=== PATIENT | female | born 1950 | race Caucasian/White ===

== ENCOUNTER 2024-07-31 10:21 | Inpatient (IN) ==
--- NOTE | 2024-07-01 12:30 | PAT Medication Instructions ---
Medication Instructions Date of Service July 01, 2024 Home Medications Medication Instructions Recorded pravastatin 10 mg tablet 10 mg PO QAM #90 tabs 09/24/23 losartan 25 mg tablet 25 mg PO QAM pravastatin 10 mg tablet 10 mg PO QAM aspirin 81 mg tablet,delayed release 81 mg PO DAILY amlodipine 10 mg tablet 10 mg PO QAM ASK your prescriber and surgeon aspirin 81 mg tablet,delayed release 81 mg PO DAILY DO NOT take the morning of surgery losartan 25 mg tablet 25 mg PO QAM Take morning of surgery With a small sip of water, OTHERWISE NOTHING TO EAT OR DRINK AFTER MIDNIGHT: pravastatin 10 mg tablet 10 mg PO QAM amlodipine 10 mg tablet 10 mg PO QAM Other Notes If you have any questions please call us at [phone] or [phone] or [phone] or [phone]
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
[2024-07-31] MEDS ORDERED: fentaNYL citrate PF 100 MCG/2 ML VIAL ONE ×2 (10:53→13:31)
[2024-07-31] MEDS ORDERED: MIDAZOLAM HCL 1 MG/ML 2ML VIAL ONE (10:54)
[2024-07-31] MEDS ORDERED: PROPOFOL IV EMULSION 10 MG/ML 20 ML VIAL IV ONE ×2 (10:55→14:40)
[2024-07-31] MEDS ORDERED: ONDANSETRON INJ 2 MG/ML 2 ML VIAL ONE ×2 (10:55→13:55)
[2024-07-31] MEDS ORDERED: LIDOCAINE 2% 2 ML VIAL/AMP(20MG/ML) INFIL ONE ×2 (10:55)
[2024-07-31] MEDS ORDERED: DEXAMETHASONE SOD INJ 4 MG/ML VIAL ONE ×2 (10:55→10:56)
[2024-07-31] MEDS ORDERED: ROCURONIUM BROMIDE 10 MG/ML 5 ML VIAL IV ONE ×2 (10:55→12:47)
[2024-07-31] MEDS ORDERED: diphenhydrAMINE 50 MG/ML VIAL ONE (10:56)
[2024-07-31] MEDS: LR 60ML/HR IV SCH (11:00)
[2024-07-31] MEDS: ACETAMINOPHEN 500 MG TAB PO SCH (11:01)
[2024-07-31] MEDS: CeleBREX 200 MG CAP PO SCH (11:01)
[2024-07-31] MEDS: GABAPENTIN 300 MG CAP PO SCH (11:01)
[2024-07-31 11:12] LABS: BUN Creatinine Ratio 18.4 (10-20); Calcium 10.1 mg/dl (8.6-10.3); Creatinine Clr Calc Pharmacy 55.4 ml/min; Potassium 4.4 mmol/L (3.5-5.1)
--- NOTE | 2024-07-31 11:47 | History & Physical Bridge Note ---
Date of Service July 31, 2024 History & Physical Bridge Note I have examined the patient, reviewed the History & Physical and in the interval since the performance of the History & Physical I have noted the following changes of clinical significance: no changes noted
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
[2024-07-31] MEDS: ceFAZolin 2000MG 2,000 MG/15 ML SYR IV ONE (12:16)
[2024-07-31] MEDS ORDERED: ONDANSETRON INJ 2 MG/ML 2 ML VIAL IV PRN (12:24)
[2024-07-31] MEDS ORDERED: LABETALOL HCL IV 5 MG/ML 20ML IV PRN (12:24)
[2024-07-31] MEDS ORDERED: ATROPINE SULFATE 0.1 MG/ML 10ML SYR IV PRN (12:24)
[2024-07-31] MEDS ORDERED: PROMETHAZINE HCL 6.25 MG in SODIUM CHLORIDE 0.9% 50 ML IV PRN (12:24)
[2024-07-31] MEDS ORDERED: SUGAMMADEX SODIUM 200 MG/2 ML VIAL IV ONE (12:51)
[2024-07-31] MEDS ORDERED: ePHEDrine sulfate 50 MG/5 ML SYR ONE (12:59)
[2024-07-31] MEDS: BUPIVACAINE/EPINEPHRINE 0.25% 1:200,000 30 ML VIAL ONE (13:04)
[2024-07-31] MEDS: ceFAZolin 330 MG/ML 1 GM VIAL ONE (14:42)
[2024-07-31] MEDS: FLOSEAL HEMOSTATIC MATRIX 10ML TOP ONE (14:42)
--- NOTE | 2024-07-31 14:55 | Operative Report ---
Post Operative Report Pre & Post Diagnosis Operation Date: 07/31/24 11:55 Pre-Op Diagnosis: #1 multilevel lumbosacral spondylosis with radiculopathy: #2 lumbar spinal stenosis Post-Op Diagnosis: Same I identified the patient and participated in the time-out.: Yes Procedure Operation Date: 07/31/24 11:55 Actual Procedures #1 lumbar decompression bilaterally facetectomies and foraminotomies L3-L4, L4-5 and L5-S1. #2 posterior spinal fusion L4-L5. #3 placement posterior instrumentation L4-L5 using Encarnacion. #4 interbody fusion L4-L5 L5-S1. #5 place ment of Spira 13 x 26 mm x 2 at L4-L5 and 13 x 26 mm x 2 at L5-S1. #6 placement locally harvested once as autograft and posterior gutters. #7 placement infuse collagen sponge combined with Koros in the posterior lateral gutters. Placement of os design and interbody spaces. Surgeon Isaias Majano, DO [employer] Presenter Braden Cotton Estimated Blood Loss 600 Findings See Below The patient is 5 foot 6 weighing over 90 kg with a BMI in excess of 32. The patient's body habitus did contribute to significant technical difficulty with positioning exposure the procedure itself adding these 50% increased operative time. Specimens None Indications This is a 74-year-old female the presents above-mentioned diagnosis after failing course of nonoperative care is here for surgical invention. Description of Procedure Patient was met with identified informed consent obtained. Patient was then taken to the operative suite underwent send patient placed in the prone position on the Pete table on top of the Zack frame. All bony prominences well- padded eyes inspected to ensure no external pressure placed upon them. This point the lumbar spine was prepped and draped in the normal sterile fashion. Sharp dissection with the assistance of Bovie cautery performed down to exposing the lamina and transverse processes of L4-5 and the sacral ala bilaterally. From a caudal cephalad fashion complete laminectomy of L5 was performed including bilateral medial facetectomies and foraminotomies addressing severe neural compression. This is followed by complete laminectomy of L4 with bilateral medial facetectomies and foraminotomies addressing severe stenosis and lastly partial laminectomy of L3 with bilateral medial facetectomies to address all subarticular stenosis. Pedicle screws were then placed at L4-L5 and S1 levels bilaterally with assistance of fluoroscopy and appropriate sized escobar placed. Believe a transforaminal approach on the right did discectomy of L5-S1 was performed endplates created to subcortically bone and a 13 x 26 mm spiral cage tapped into position. Then proceeded to the left transforaminal region at L5-S1. Again discectomy performed. Endplates guided to subcortical main bone and a second 13 x 26 mm spiral cage tapped into position. Then proceeded at L4- L5 and again by way of transfer approach to the left discectomy was performed. Endplates guided to subcortically bone and 13 x 26 mm spiral cage was tapped into position. Then proceeded to the right transforaminal region at L4-L5. Again discectomy performed. Endplates guided to subcortical bleeding bone and a second 13 x 26 mm spiral cage tapped into position. Please note all cages were filled with os design bone graft. The rods were then compressed locked into final position bilaterally. The transverse processes of L4-L5 and the sacral ala burred to subcortical bleeding bone. Infuse collagen sponge combined with Koros and local autograft placed in posterior gutters. Incidental durotomy was noted and repaired directly with interrupted 4-0 Nurolon. A DuraGen patch was then placed. There is no evidence of any persistent CSF leak. A 15 round CARY drain is inserted. The incision was closed with 1 Vicryl the fascia 2-0 Vicryl subcutaneously and 4 Monocryl for final skin closure. Steri-Strips sterile dressing placed. Patient waken taken PACU stable condition. Please note Braden Cotton was present of the entire procedure and on the patient positioning complex portion of the surgery and final skin closure. Im ordering 10 grams of Collagen Powder ([facility] A6010 Primary Dressing) and 10 bordered super absorbent ([facility] A6196 Secondary Dressing) to treat an incision wound that was c aused by a spine procedure. The incision is approximately 2 cm(W) x 2 cm(L) down to the spinal column and epidural space 2 cm (D) in size and is a full thickness wound showing no signs of infection. Collagen comes in 1 gram packets so 10 packets were ordered. Given the size of the wound, with moderate exudate I chose to order a 10 day supply. The patient will be provided instructions for proper application of the collagen wound kit. The patient will be asked to apply the collagen powder daily and then cover it with sterile dressings dispensed. Collagen was selected as I expect the collagen to attract monocytes and fibroblasts, act as a sacrificial substrate for MMPs, and ultimately proved a matrix for tissue and vessel growth. The collagen will act as a primary dressing in this scenario. It is medically necessary for proper healing of these wounds to improve bioavailability and contact with each wound surface, this is also to help prevent infection of wounds and promote healing ultimately leading to a better healing outcome and limit the risk of infection. I attest to the content of the Intraoperative Record and any orders documented therein. Any exceptions are noted below.
--- NOTE | 2024-07-31 14:59 | Fluoroscopy Report ---
FL lumbar spine 2-3V CLINICAL HISTORY: L4-S1 DECOMP/FUSION COMPARISON STUDY: None FLUOROSCOPY TIME: 25 seconds FLUOROSCOPY IMAGES: 3 EXPOSURE DOSE: 21 mGy FINDINGS: Fluoroscopy was provided for lower lumbar metallic fusion. IMPRESSION: Intraoperative fluoroscopy. ACT 112: Negative or not required by law. Electronically signed by: Guillermo Silva M.D. 07/31/2024 2:57 PM
[2024-07-31] MEDS: HYDROmorphone INJ 1 MG/ML SYRINGE IV PRN ×2 (15:15→19:52)
[2024-07-31] MEDS: HYDROmorphone INJ 2 MG/ML SYR/VIAL IV PRN (15:49)
[2024-07-31] MEDS: HYDROmorphone INJ 2 MG/ML SYR/VIAL ONE (16:02)
--- NOTE | 2024-07-31 16:32 | Anesthesiology Progress Note ---
Date of Service July 31, 2024 Anesthesia Post Procedure Vital Signs Vital Signs: Temp Pulse Pulse Resp BP Pulse Ox O2 Del Method 07/31/24 16:20 62 17 95/61 L 92 Room Air 07/31/24 16:10 36.4 C L 62 17 100/59 L 93 Room Air 07/31/24 16:00 36.4 C L 62 16 121/64 96 Room Air 07/31/24 15:50 64 21 121/64 96 Nasal Cannula 07/31/24 15:40 64 19 134/68 93 Nasal Cannula 07/31/24 15:30 65 15 134/67 95 Nasal Cannula 07/31/24 15:20 65 19 141/87 H 95 Room Air 07/31/24 15:10 69 15 130/70 99 Oxymask 07/31/24 15:08 36.1 C L 66 16 124/62 99 Oxymask 07/31/24 11:22 36.9 C 58 L 16 165/84 H 97 Room Air O2 Flow Rate 07/31/24 16:20 2 07/31/24 16:10 2 07/31/24 16:00 2 07/31/24 15:50 2 07/31/24 15:40 2 07/31/24 15:30 2 07/31/24 15:20 07/31/24 15:10 4 07/31/24 15:08 4 07/31/24 11:22 Transfer of Care Handoff Completed per policy Notes Mental Status: alert / awake / arousable Patient Amnestic to Procedure: Yes Nausea / Vomiting: adequately controlled Pain: adequately controlled Airway Patency, RR, SpO2: stable & adequate BP & HR: stable & adequate Hydration State: stable & adequate Anesthetic Complications: no major complications apparent
[2024-07-31] MEDS ORDERED: FAMOTIDINE 20 MG TAB PO PRN (16:50)
[2024-07-31] MEDS ORDERED: LORazepam 2 MG/1 ML VIAL IV PRN (16:50)
[2024-07-31] MEDS ORDERED: hydrOXYzine HCl 25 MG TAB PO PRN (16:50)
[2024-07-31] MEDS ORDERED: NALOXONE HCL 0.4 MG/1 ML VIAL/CARP IV PRN (16:50)
[2024-07-31] MEDS ORDERED: diphenhydrAMINE Capsule 25 MG CAP PO PRN (16:50)
[2024-07-31] MEDS ORDERED: traMADol HCL 50 MG TABLET PO PRN (16:50)
[2024-07-31] MEDS ORDERED: bisacodyL 10 MG SUPP PR PRN (16:50)
[2024-07-31] MEDS ORDERED: ALUMINUM/MAGNESIUM SUSP 30 ML UDC PO PRN (16:50)
[2024-07-31] MEDS ORDERED: PROMETHAZINE 12.5 MG/50.5 ML BAG IV PRN (16:50)
[2024-07-31] MEDS ORDERED: DO NOT ADMINISTER FLU VACCINE PRN (16:50)
[2024-07-31] MEDS ORDERED: SOD PHOSPHATE/SOD BIPHOSPHATE ENEMA 132 ML BTL PR PRN (16:50)
[2024-07-31] MEDS ORDERED: METOCLOPRAMIDE HCL INJ 5 MG/ML 2 ML VIAL IV PRN (16:50)
[2024-07-31] MEDS ORDERED: MAGNESIUM HYDROXIDE SUSP 30 ML UDC PO PRN (16:50)
[2024-07-31] MEDS ORDERED: LORazepam 0.5 MG TAB PO PRN (16:50)
[2024-07-31] MEDS ORDERED: DO NOT ADMINISTER PNEUMOCOCCAL VACCINE PRN (16:50)
[2024-07-31] MEDS ORDERED: HYDROmorphone INJ 0.5 MG/0.5 ML SYR IV PRN (16:50)
[2024-07-31] MEDS ORDERED: ACETAMINOPHEN 500 MG TAB PO PRN (16:50)
[2024-07-31] MEDS: ALLERGY Noted to ORDERED Medication SCH (16:55)
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
[2024-07-31] MEDS: HYDROCODONE/ACETAMOPHEN 5/325MG TAB PO PRN (18:14)
[2024-07-31] MEDS: ONDANSETRON INJ 2 MG/ML 2 ML VIAL IV PRN (19:51)
[2024-07-31] MEDS: CLINDAMYCIN/D5W 600 MG/50 ML BAG IV SCH (20:55)
[2024-07-31] MEDS: DOCUSATE SODIUM/SENNA 50/8.6MG TAB PO SCH (20:55)
[2024-07-31] MEDS: ACETAMINOPHEN 1,000 MG/100 ML VIAL IV PRN (23:11)
[2024-08-01] MEDS: POLYETHYLENE (MIRALAX) 17 GM PACK PO SCH (05:55)
[2024-08-01 06:22] LABS: Basophils # (auto) 0.01 K/uL (0.00-0.20); Basophils % (auto) 0.1 %; Hematocrit (blood only) 31.9 % (37.0-47.0); Hemoglobin 10.1 g/dl (12.0-16.0); Immature Granulocytes # (auto) 0.07 K/uL (0.01-0.20); Immature Granulocytes % (auto) 0.5 %; Lymphocytes # (auto) 1.03 K/uL (1.20-3.40); Lymphocytes % (auto) 7.2 %; Mean Corpuscular Hemoglobin 28.8 pg (25.0-34.0); Mean Corpuscular Hgb Conc 31.7 g/dL (32.0-36.0); Mean Corpuscular Volume 90.9 fL (80.0-100.0); Mean Platelet Volume 10.2 fL (9.4-12.4); Monocytes # (auto) 0.75 K/uL (0.11-0.59); Monocytes % (auto) 5.3 %; Neutrophils # (auto) 12.36 K/uL (1.40-6.50); Neutrophils % (auto) 86.9 %; Platelet Count 301 K/uL (130-400); RDW Coefficient of Variation 12.7 % (11.5-14.5); RDW Standard Deviation 41.6 fL (36.4-46.3); Red Blood Count 3.51 M/uL (4.20-5.40); White Blood Count 14.22 K/ul (4.8-10.8)
[2024-08-01 06:38] LABS: BUN Creatinine Ratio 20.6 (10-20); Calcium 8.6 mg/dl (8.6-10.3); Creatinine Clr Calc Pharmacy 50.7 ml/min; Potassium 4.9 mmol/L (3.5-5.1)
--- NOTE | 2024-08-01 07:02 | Hospitalist Progress Note ---
Date of Service August 01, 2024 Assessment & Plan (1) Multilevel lumbosacral spondylosis with radiculopathy: (2) S/P spinal surgery: (3) Headache: (4) Acute postoperative anemia due to expected blood loss: Plan Patient is a 74 year old female with past medical history of spondylosis with radiculopathy, HTN, HLD, chronic venous insufficiency, PAD, PUD, hiatal hernia, history of provoked DVT in 1990 and other problems listed below who is being seen in consultation for routine postoperative medical management after undergoing L4-S1 decompression and fusion performed by Dr. Majano on 07/31/24. #Multilevel lumbosacral spondylosis with radiculopathy #S/p spinal surgery #Postop headache, N/V --> possible spinal headache 2/2 CSF leak ISO incidental durotomy during surgery POD #1 s/p L4-S1 decompression and fusion Continue PRN pain control, wound care per ortho Head of bed flat for 48hrs ISO incidental durotomy, suspect spinal headache IV reestablished this AM (previously lost access 2/2 infiltration) IV Decadron ordered per ortho --> suspect cause for leukocytosis ? benefit from caffeine infusion for spinal ELIZABETH --> reassess pt this afternoon Maintenance IVF until N/V resolves #Acute postoperative blood loss anemia ISO expected intraop blood loss Likely dilutional component contributing as well No indication to transfuse at this time Continue to monitor H/H #HTN BP still soft Continue hold home BP meds Reportedly on diuretic 2 weeks ago for BLE swelling, discontinued by pt (? swelling 2/2 Norvasc) #Carotid artery stenosis #HLD Continue statin, ASA as per ortho DVT Prophylaxis: As per ortho Disposition: D/c planning as per ortho We will follow the patient with you during their hospital stay. You can reach a member of the [facility] Hospitalist Team 03/09 via [employer]. Patient seen in collaboration with Dr. Apodaca. Please see addendum. I spent a total of 50 minutes coordinating, documenting, and providing care for this patient excluding time spent in the performance of separately billed services or time spent by another provider/QHP. This included personally reviewing all current laboratories and imaging studies, medical reconciliation, outpatient chart review and discussion with specialists. This chart was completed in part utilizing Speech Voice Recognition Software. Grammatical errors, random word insertions, pronoun errors, and incomplete sentences are an occasional consequence of this system due to software limitations, ambient noise, and hardware issues. Any formal questions or concerns about the content, text, or information contained within the body of this dictation should be directly addressed to the provider for clarification. Admission and Anticipated Discharge Date Admission Date: July 31, 2024 Supervising Physician Co-Signing Physician Notes Patient seen at bedside. Patient uncomfortable today, is upset and has a severe headache. Lumbar decompression in setting of incidential durotomy causing likely CSF leak and spinal headache. Will give fluids, caffeine, bed rest, lying flat for now. Abdominal binder if symptoms worsen. If refractory will consider blood patch. Other headache differential includes migraine, bleed, less likely infectious. CT head w/o contrast ordered given severe headache. I have seen and discussed the case with the collaborating advanced practitioner. I agree with the above H&P. I have reviewed and confirmed the patients medical history, the findings on physical examination, and the patients diagnosis and treatment plan with Skyler PEDROZA and agree with the information documented. I spent a total of 20 minutes coordinating, documenting, and providing care for this patient excluding time spent in the performance of separately billed services. All of the aforementioned completed outside of collaborating with the assigned advanced practitioner for a full treatment plan. I have reviewed the advanced practitioner's documentation, and I agree with, and take responsibility for the plan of care Subjective Patient seen and examined in W354-2. Endorses an aching headache which started overnight. Also with some N/V. Mention she cannot lay flat because it makes her extremely nauseous. Closing her eyes helps somewhat. Waiting to reestablish IV access. Review of Systems Review of Systems: At least ten systems reviewed and negative, except as noted in the subjective section. Physical Exam Physical Exam: General: Laying down in bed w/ head at an incline. A&Ox3. Visibly uncomfortable, tearful. Restless, anxious. HEENT: Normocephalic, atraumatic. External ear and nose normal, oropharynx normal. Respiratory: Normal respiratory effort, lungs clear to auscultation bilaterally. Cardiovascular: Regular rate, rhythm, normal peripheral pulses, no BLE edema. Abdomen/GI: Active bowel sounds, soft, nontender to palpation in all quadrants. : Torres catheter patent and draining clear, yellow urine. Extremities/MSK: CARY drain x 1 w/ bloody output. Surgical site not visualized 2/2 pt discomfort. Neurologic: No overt focal deficits. Actively moving all extremities. Results & Data Results & Data Vital Signs (Past 12 Hours) Vital Signs Temp Pulse Resp BP Pulse Ox O2 Del Method 08/01/24 03:00 36.5 C 64 18 133/78 95 Room Air 07/31/24 23:00 36.5 C 52 L 18 106/66 94 Room Air 07/31/24 20:40 36.5 C 63 18 115/75 91 Room Air 07/31/24 19:40 36.5 C 54 L 18 106/68 93 Room Air Laboratory Results Short CBC 08/01/24 Range/Units 05:48 WBC 14.22 H (4.8-10.8) K/ul Hgb 10.1 L (12.0-16.0) g/dl Hct 31.9 L (37.0-47.0) % Plt Count 301 (130-400) K/uL BMP 07/31/24 08/01/24 10:31 05:48 Sodium 139 136 Potassium 4.4 4.9 Chloride 107 106 Carbon Dioxide 27 26 BUN 18 22 Creatinine 0.98 1.07 Glucose 99 176 H Calcium 10.1 8.6 (3) Headache Headache chronicity pattern: acute headache Headache type: unspecified Intractability: intractable Qualified Code(s): R51.9 - Headache, unspecified
[2024-08-01] MEDS: ONDANSETRON 4 MG OD TAB PO PRN (08:41)
[2024-08-01] MEDS ORDERED: amLODIPine BESYLATE 5 MG TAB PO SCH (09:00)
[2024-08-01] MEDS ORDERED: LOSARTAN POTASSIUM 25 MG TAB PO SCH (09:00)
[2024-08-01] MEDS ORDERED: dexAMETHasone 6 MG in SYRINGE 0 ML IV SCH (09:00)
[2024-08-01] MEDS ORDERED: DEXAMETHASONE SOD INJ 4 MG/ML VIAL IV SCH (10:15)
[2024-08-01] MEDS: dexAMETHasone 1 MG TAB PO SCH (10:22)
[2024-08-01] MEDS ORDERED: ACETAMINOPHEN 1,000 MG/100 ML VIAL IV PRN (10:24)
[2024-08-01] MEDS: PRAVASTATIN SOD 10 MG TAB PO SCH (10:45)
[2024-08-01] MEDS: ASPIRIN 81 MG ECTAB PO SCH (10:45)
[2024-08-01] MEDS: METOCLOPRAMIDE HCL INJ 5 MG/ML 2 ML VIAL IV PRN (10:47)
[2024-08-01] MEDS: SODIUM CHLORIDE 0.9% 1,000 ML IV SCH (10:47)
[2024-08-01] MEDS: ACETAMINOPHEN 1,000 MG/100 ML VIAL IV STA (10:50)
--- NOTE | 2024-08-01 10:50 | Orthopedic Progress Note ---
Date of Service August 01, 2024 Assessment & Plan (1) Multilevel lumbosacral spondylosis with radiculopathy: Plan: At this time I did remove her drain. Will maintain head of bed flat for most of the day for the next 48 hours. She may sit up to eat. She may lay on her side. Will plan for bed to chair transfers most likely Saturday. Admission and Anticipated Discharge Date Admission Date: July 31, 2024 Subjective Patient struggling with nausea and headache. She has no leg pain. Physical Exam Physical Exam: On exam she is good strength testing lower extremities. Results & Data Vital Signs (Past 12 Hours) Vital Signs Temp Pulse Pulse Resp BP Pulse Ox O2 Del Method 08/01/24 08:22 36.6 C 90 18 125/67 95 Room Air 08/01/24 03:00 36.5 C 64 18 133/78 95 Room Air 07/31/24 23:00 36.5 C 52 L 18 106/66 94 Room Air
[2024-08-01] MEDS: dexAMETHasone 6 MG in SYRINGE 0 ML IV SCH (11:47)
[2024-08-01] MEDS: CYCLOBENZAPRINE HCL 10 MG TAB PO PRN (11:53)
--- NOTE | 2024-08-01 13:54 | Ultrasound Report ---
LEFT LOWER EXTREMITY VENOUS DOPPLER HISTORY: L calf pain, h/o DVT COMPARISON STUDY: None FINDINGS: No evidence of DVT seen in the left lower extremity. IMPRESSION: No DVT seen. . ACT 112: Negative or not required by law. Electronically signed by: Guillermo Silva M.D. 08/01/2024 1:52 PM
[2024-08-02 07:46] LABS: Hematocrit (blood only) 31.9 % (37.0-47.0); Hemoglobin 10.1 g/dl (12.0-16.0); Mean Corpuscular Hemoglobin 28.9 pg (25.0-34.0); Mean Corpuscular Hgb Conc 31.7 g/dL (32.0-36.0); Mean Corpuscular Volume 91.1 fL (80.0-100.0); Mean Platelet Volume 10.3 fL (9.4-12.4); Platelet Count 291 K/uL (130-400); RDW Coefficient of Variation 13.1 % (11.5-14.5); RDW Standard Deviation 43.1 fL (36.4-46.3); White Blood Count 16.66 K/ul (4.8-10.8)
--- NOTE | 2024-08-02 07:51 | Hospitalist Progress Note ---
Date of Service August 02, 2024 Assessment & Plan (1) Multilevel lumbosacral spondylosis with radiculopathy: (2) S/P spinal surgery: (3) Headache: (4) Acute postoperative anemia due to expected blood loss: Plan Patient is a 74 year old female with past medical history of spondylosis with radiculopathy, HTN, HLD, chronic venous insufficiency, PAD, PUD, hiatal hernia, history of provoked DVT in 1990 and other problems listed below who is being seen in consultation for routine postoperative medical management after undergoing L4-S1 decompression and fusion performed by Dr. Majano on 07/31/24. #Multilevel lumbosacral spondylosis with radiculopathy #S/p spinal surgery #Postop headache, N/V --> possible spinal headache 2/2 CSF leak ISO incidental durotomy during surgery POD #2 s/p L4-S1 decompression and fusion Continue PRN pain control, wound care per ortho Head of bed flat for 48hrs ISO incidental durotomy, suspect spinal headache ELIZABETH had resolved overnight but has now returned this AM Pt refusing head CT --> education provided, pt encouraged to reconsider IV Decadron ordered per ortho --> suspect attributing for leukocytosis, likely postop inflammatory response as well S/p IV caffeine infusion yesterday; ? may need to reconsider another infusion as ELIZABETH has returned Hold off on additional IVF for now as pt tolerating diet #Acute postoperative blood loss anemia ISO expected intraop blood loss Likely dilutional component contributing as well No indication to transfuse at this time Continue to monitor H/H, stable for now #L calf pain reported on 08/01 LLE venous doppler US negative (obtained given remote h/o DVT) #HTN BP slightly elevated this AM --> restart Norvasc Continue to hold losartan for now Reportedly on diuretic 2 weeks ago for BLE swelling, discontinued by pt (? swelling 2/2 Norvasc) #Carotid artery stenosis #HLD Continue statin, ASA as per ortho DVT Prophylaxis: As per ortho Disposition: D/c planning as per ortho We will follow the patient with you during their hospital stay. You can reach a member of the [facility] Hospitalist Team 03/09 via [employer]. Patient seen in collaboration with Dr. Apodaca. Please see addendum. I spent a total of 38 minutes coordinating, documenting, and providing care for this patient excluding time spent in the performance of separately billed services or time spent by another provider/QHP. This included personally reviewing all current laboratories and imaging studies, medical reconciliation, outpatient chart review and discussion with specialists. This chart was completed in part utilizing Speech Voice Recognition Software. Grammatical errors, random word insertions, pronoun errors, and incomplete sentences are an occasional consequence of this system due to software limitations, ambient noise, and hardware issues. Any formal questions or concerns about the content, text, or information contained within the body of this dictation should be directly addressed to the provider for clarification. Admission and Anticipated Discharge Date Admission Date: July 31, 2024 Supervising Physician Co-Signing Physician Notes Personally reviewed labs, leukocytosis of 16.66 in setting of decadron and post op setting, Hgb level stable post op Lumbar decompression in setting of incidental durotomy causing likely CSF leak and spinal headache. Headache improving with fluids and caffeine. Dispo per ortho. I have seen and discussed the case with the collaborating advanced practitioner. I agree with the above H&P. I have reviewed and confirmed the patients medical history, the findings on physical examination, and the patients diagnosis and treatment plan with Skyler PEDROZA and agree with the information documented. I spent a total of 10 minutes coordinating, documenting, and providing care for this patient excluding time spent in the performance of separately billed services. All of the aforementioned completed outside of collaborating with the assigned advanced practitioner for a full treatment plan. I have reviewed the advanced practitioner's documentation, and I agree with, and take responsibility for the plan of care Subjective Patient seen and examined in room W354-2. Headache initially resolved overnight but has since returned this morning. Rates it as a 5/10 and aching in nature. No visual changes. Head of bed remains flattened. No further N/V. Strongly advised patient that we should check a head CT for further evaluation to ensure there is no underlying hemorrhage but she repeatedly stated she'd like to hold off on getting any imaging for now unless the headache would worsen. Endorses feeling very anxious. Now with bothersome pain in her left leg which was present prior to surgery. LLE venous doppler US negative yesterday. Encouraged her to utilize PRN pain medications. Review of Systems Review of Systems: At least ten systems reviewed and negative, except as noted in the subjective section. Physical Exam Physical Exam: General: Laying down in bed w/ head of bed flat. A&Ox3. Tearful. Seems unc omfortable. Restless, very anxious. HEENT: Normocephalic, atraumatic. External ear and nose normal, oropharynx normal. Respiratory: Normal respiratory effort, lungs clear to auscultation bilaterally. Cardiovascular: Regular rate, rhythm, normal peripheral pulses, no BLE edema. Abdomen/GI: Active bowel sounds, soft, nontender to palpation in all quadrants. : Torres catheter patent and draining clear, yellow urine. Extremities/MSK: Surgical site not visualized 2/2 pt discomfort. Neurologic: No overt focal deficits. Actively moving all extremities. Results & Data Results & Data Vital Signs (Past 12 Hours) Vital Signs Temp Pulse Resp BP Pulse Ox O2 Del Method 08/02/24 07:42 36.6 C 58 L 18 155/93 H 95 Room Air 08/02/24 03:00 36.7 C 68 16 145/72 H 91 Room Air 08/01/24 23:00 36.5 C 72 18 146/80 H 94 Room Air Laboratory Results Short CBC 08/02/24 Range/Units 07:26 WBC 16.66 H (4.8-10.8) K/ul Hgb 10.1 L (12.0-16.0) g/dl Hct 31.9 L (37.0-47.0) % Plt Count 291 (130-400) K/uL BMP 08/02/24 07:26 Sodium 141 Potassium 4.2 Chloride 110 H Carbon Dioxide 27 BUN 11 Creatinine 0.79 Glucose 107 H Calcium 8.8 (3) Headache Headache chronicity pattern: acute headache Headache type: unspecified Intractability: intractable Qualified Code(s): R51.9 - Headache, unspecified
[2024-08-02 08:13] LABS: BUN Creatinine Ratio 13.9 (10-20); Calcium 8.8 mg/dl (8.6-10.3); Creatinine Clr Calc Pharmacy 68.7 ml/min; Potassium 4.2 mmol/L (3.5-5.1)
--- NOTE | 2024-08-02 08:31 | Orthopedic Progress Note ---
Date of Service August 02, 2024 Assessment & Plan (1) Multilevel lumbosacral spondylosis with radiculopathy: Plan: Sindi is postoperative day 2 status post L4-S1 decompression and fusion with postop CSF leak. Will maintain head of bed no greater than 10 degrees today. If still asymptomatic tomorrow, will attempt a bed to chair. Maintain Torres catheter. I will restart some steroids due to her left leg pain. Admission and Anticipated Discharge Date Admission Date: July 31, 2024 Subjective Don is postoperative day 2 status post L4-S1 decompression and fusion with CSF leak. Headache has resolved. No nausea. Still has left leg pain. She is currently head of bed flat until tomorrow. Torres catheter was placed yesterday. Review of Systems Review of Systems: All systems reviewed & are unremarkable except as noted in HPI & below Physical Exam Physical Exam: She is laying in bed with head of bed elevated to about 25 degrees. She is tolerating this. Strength is intact bilateral lower extremities Results & Data Vital Signs (Past 12 Hours) Vital Signs Temp Pulse Resp BP Pulse Ox O2 Del Method 08/02/24 07:42 36.6 C 58 L 18 155/93 H 95 Room Air 08/02/24 03:00 36.7 C 68 16 145/72 H 91 Room Air 08/01/24 23:00 36.5 C 72 18 146/80 H 94 Room Air
[2024-08-02] MEDS: dexAMETHasone 8 MG in SYRINGE 0 ML IV SCH (09:24)
[2024-08-02] MEDS: amLODIPine BESYLATE 5 MG TAB PO SCH (13:25)
--- NOTE | 2024-08-03 07:54 | Orthopedic Progress Note ---
Date of Service August 03, 2024 Assessment & Plan (1) Multilevel lumbosacral spondylosis with radiculopathy: Plan: Today we will begin bed to chair transfer. She should hopefully get to a chair least 2-3 times today. Walk in the room only. Pending her progress we will increase activity with physical therapy. Admission and Anticipated Discharge Date Admission Date: July 31, 2024 Subjective Patient's headache is improved she has no leg pain. Back is stiff. Physical Exam Physical Exam: Dressing demonstrates minimal drainage. She has good strength testing. Results & Data Vital Signs (Past 12 Hours) Vital Signs Temp Pulse Resp BP Pulse Ox O2 Del Method 08/03/24 07:25 37.3 C 63 16 139/77 97 Room Air 08/02/24 20:47 37.1 C 72 20 153/71 H 96 Room Air
[2024-08-03 08:00] LABS: Hematocrit (blood only) 31.4 % (37.0-47.0); Hemoglobin 10.2 g/dl (12.0-16.0); Mean Corpuscular Hemoglobin 28.9 pg (25.0-34.0); Mean Corpuscular Hgb Conc 32.5 g/dL (32.0-36.0); Mean Platelet Volume 10.8 fL (9.4-12.4); Platelet Count 328 K/uL (130-400); RDW Coefficient of Variation 12.9 % (11.5-14.5); RDW Standard Deviation 41.8 fL (36.4-46.3); Red Blood Count 3.53 M/uL (4.20-5.40); White Blood Count 19.17 K/ul (4.8-10.8)
[2024-08-03 08:25] LABS: BUN Creatinine Ratio 15.8 (10-20); Creatinine Clr Calc Pharmacy 71.4 ml/min; Potassium 4.1 mmol/L (3.5-5.1)
--- NOTE | 2024-08-03 10:57 | Hospitalist Progress Note ---
Date of Service August 03, 2024 Assessment & Plan (1) Multilevel lumbosacral spondylosis with radiculopathy: (2) S/P spinal surgery: (3) Headache: (4) Acute postoperative anemia due to expected blood loss: Plan Patient is a 74 year old female with past medical history of spondylosis with radiculopathy, HTN, HLD, chronic venous insufficiency, PAD, PUD, hiatal hernia, history of provoked DVT in 1990 and other problems listed below who is being seen in consultation for routine postoperative medical management after undergoing L4-S1 decompression and fusion performed by Dr. Majano on 07/31/24. #Multilevel lumbosacral spondylosis with radiculopathy #S/p spinal surgery #Postop headache, N/V --> possible spinal headache 2/2 CSF leak ISO incidental durotomy during surgery POD #3 s/p L4-S1 decompression and fusion Post-op headache in setting of incidental durotomy has resolved, tolerating being OOB today for first time since surgery Advancement of activity per Dr. Majano Plan to remove alfonso tomorrow once more mobile IV Decadron per ortho - significant improvement in post-op pain. Consider dc/ decreasing frequency tomorrow Continue PRN pain control, wound care per ortho #Acute postoperative blood loss anemia ISO expected intraop blood loss, likely dilutional component also contributing Hgb stable at 10.2 (10.1 yesterday) Continue to monitor H/H #Leukocytosis WBC 19K in setting of IV steroids - no suspicion for underlying infection Monitor closely, anticipate decreasing steroid frequency tomorrow #L calf pain reported on 08/01 -> resolved LLE venous doppler US negative (obtained given remote h/o DVT) #HTN Normotensive today Norvasc resumed, plan to resume losartan tomorrow AM #Carotid artery stenosis #HLD Continue statin, ASA as per ortho DVT Prophylaxis: As per ortho. Will discuss adding SQ DVT ppx as of tomorrow as patient will be POD #4. Disposition: D/c planning as per ortho We will follow the patient with you during their hospital stay. You can reach a [facility] via [employer]. I spent a total of 50 minutes coordinating, documenting, and providing care for this patient excluding time spent in the performance of separately billed services or time spent by another provider/QHP. Patient seen in collaboration with Dr. Apodaca. Admission and Anticipated Discharge Date Admission Date: July 31, 2024 Supervising Physician Co-Signing Physician Notes Personally reviewed labs, leukocytosis of 19 in setting of decadron and post op setting, Hgb level stable post op Lumbar decompression in setting of incidental durotomy causing likely CSF leak and spinal headache. Up in chair today, dispo per ortho. I have seen and discussed the case with the collaborating advanced practitioner. I agree with the above H&P. I have reviewed and confirmed the patients medical history, the findings on physical examination, and the patients diagnosis and treatment plan with Skyler PEDROZA and agree with the information documented. I spent a total of 10 minutes coordinating, documenting, and providing care for this patient excluding time spent in the performance of separately billed services. All of the aforementioned completed outside of collaborating with the assigned advanced practitioner for a full treatment plan. I have reviewed the advanced practitioner's documentation, and I agree with, and take responsibility for the plan of care Subjective Seen and examined in 354-2. Sitting in bedside chair; first time OOB since surgery on 07/31. Feeling well. Headache and L leg pain have resolved. Denies surgical site pain at rest. No F/C, lightheadedness, CP, SOB, N/V, abd pain, dysuria, diarrhea. Passing flatus, no post-op bowel movement. Alfonso in place. Review of Systems Review of Systems: At least ten systems reviewed and negative except as noted in the HPI. Physical Exam Physical Exam: Gen: WD/WN, NAD, sitting in bedside chair, A&Ox3, anxious HEENT: Normocephalic, atraumatic, mucous membranes moist Lung: Clear to Auscultation bilaterally, no wheezes/rales/rhonchi Heart: Regular rate, regular rhythm Abdomen: Soft, NT, ND +BS x 4 Extremities: Spinal dressing c/d/i, trace edema, BLE ankle strength intact Skin: Warm, no rash Results & Data Results & Data Vital Signs (Past 12 Hours) Vital Signs Temp Pulse Resp BP Pulse Ox O2 Del Method 08/03/24 07:25 37.3 C 63 16 139/77 97 Room Air Laboratory Results Short CBC 08/03/24 Range/Units 06:50 WBC 19.17 H (4.8-10.8) K/ul Hgb 10.2 L (12.0-16.0) g/dl Hct 31.4 L (37.0-47.0) % Plt Count 328 (130-400) K/uL BMP 08/03/24 06:50 Sodium 136 Potassium 4.1 Chloride 105 Carbon Dioxide 25 BUN 12 Creatinine 0.76 Glucose 132 H Calcium 9.0 Diagnostic Findings Lumbar Spine X-Ray 07/31/24 00:00 FL lumbar spine 2-3V CLINICAL HISTORY: L4-S1 DECOMP/FUSION COMPARISON STUDY: None FLUOROSCOPY TIME: 25 seconds FLUOROSCOPY IMAGES: 3 EXPOSURE DOSE: 21 mGy FINDINGS: Fluoroscopy was provided for lower lumbar metallic fusion. IMPRESSION: Intraoperative fluoroscopy. ACT 112: Negative or not required by law. Electronically signed by: Guillermo Silva M.D. 07/31/2024 2:57 PM Venous Doppler Study 08/01/24 12:23 LEFT LOWER EXTREMITY VENOUS DOPPLER HISTORY: L calf pain, h/o DVT COMPARISON STUDY: None FINDINGS: No evidence of DVT seen in the left lower extremity. IMPRESSION: No DVT seen. . ACT 112: Negative or not required by law. Electronically signed by: Guillermo Silva M.D. 08/01/2024 1:52 PM (3) Headache Headache chronicity pattern: acute headache Headache type: unspecified Intractability: intractable Qualified Code(s): R51.9 - Headache, unspecified
[2024-08-04 06:11] LABS: Hematocrit (blood only) 31.9 % (37.0-47.0); Hemoglobin 10.2 g/dl (12.0-16.0); Mean Corpuscular Hemoglobin 28.5 pg (25.0-34.0); Mean Corpuscular Volume 89.1 fL (80.0-100.0); Mean Platelet Volume 10.4 fL (9.4-12.4); Platelet Count 350 K/uL (130-400); RDW Coefficient of Variation 12.7 % (11.5-14.5); RDW Standard Deviation 41.5 fL (36.4-46.3); Red Blood Count 3.58 M/uL (4.20-5.40); White Blood Count 16.39 K/ul (4.8-10.8)
[2024-08-04 06:28] LABS: Calcium 9.1 mg/dl (8.6-10.3); Magnesium 2.2 mg/dl (1.7-2.4); Potassium 4.6 mmol/L (3.5-5.1)
[2024-08-04 06:34] LABS: Creatinine Clr Calc Pharmacy 71.4 ml/min
[2024-08-04] MEDS: LOSARTAN POTASSIUM 25 MG TAB PO SCH (08:55)
--- NOTE | 2024-08-04 09:22 | Hospitalist Progress Note ---
Date of Service August 04, 2024 Assessment & Plan (1) Multilevel lumbosacral spondylosis with radiculopathy: (2) S/P spinal surgery: (3) Headache: (4) Acute postoperative anemia due to expected blood loss: Plan Patient is a 74 year old female with past medical history of spondylosis with radiculopathy, HTN, HLD, chronic venous insufficiency, PAD, PUD, hiatal hernia, history of provoked DVT in 1990 and other problems listed below who is being seen in consultation for routine postoperative medical management after undergoing L4-S1 decompression and fusion performed by Dr. Majano on 07/31/24. #Multilevel lumbosacral spondylosis with radiculopathy #S/p spinal surgery #Postop headache, N/V 2/2 CSF leak ISO incidental durotomy during surgery POD #4 s/p L4-S1 decompression and fusion Post-op headache in setting of incidental durotomy has resolved, tolerating being OOB, ambulated in halls today Advancement of activity per Dr. Majano Torres removed today Leg pain resolved - discontinued IV Decadron 08/04 Continue PRN pain control, wound care per ortho #Constipation No post op bowel movement, passing flatus Has been refusing bowel regimen per chart review - discussed importance of regimen with patient today, agreeable to noontime miralax Added milk of mag, Sennokot, miralax. Plan for enema tomorrow if no bowel movement today #Acute postoperative blood loss anemia 2/2 expected intraop blood loss Hgb stable at 10.2 Continue to monitor H/H #Leukocytosis WBC 19K -> 16K in setting of IV steroids - no suspicion for underlying infection Monitor with daily CBC #L calf pain reported on 08/01 -> resolved LLE venous doppler US negative (obtained given remote h/o DVT) #HTN Normotensive today Norvasc and losartan resumed #Carotid artery stenosis #HLD Continue statin, ASA as per ortho DVT Prophylaxis: SQ heparin Q12 added today, discussed with Dr. Majano Disposition: D/c planning as per ortho We will follow the patient with you during their hospital stay. You can reach a member of [facility] via [employer]. I spent a total of 45 minutes coordinating, documenting, and providing care for this patient excluding time spent in the performance of separately billed services or time spent by another provider/QHP. Patient seen in collaboration with Dr. Apodaca. Admission and Anticipated Discharge Date Admission Date: July 31, 2024 Supervising Physician Co-Signing Physician Notes Patient seen and examined at bedside. Patient doing better today, tolerating sitting up in chair well. Personally reviewed labs, leukocytosis of 16 in setting of decadron and post op setting, hgb stable, patient appears comfortable sititng in chair. Lumbar decompression in setting of incidental durotomy causing likely CSF leak and spinal headache. Up in chair today, dispo per ortho, medically stable for discharge at this time. I have seen and discussed the case with the collaborating advanced practitioner. I agree with the above H&P. I have reviewed and confirmed the patients medical history, the findings on physical examination, and the patients diagnosis and treatment plan with Britta Duggan PA-C and agree with the information documented. I spent a total of 20 minutes coordinating, documenting, and providing care for this patient excluding time spent in the performance of separately billed services. All of the aforementioned completed outside of collaborating with the assigned advanced practitioner for a full treatment plan. I have reviewed the advanced practitioner's documentation, and I agree with, and take responsibility for the plan of care Subjective Seen and examined in 354-2. Sitting in bedside chair with minimal discomfort. Was able to ambulate in the baca with therapy this AM. Headache and L leg pain have resolved. Denies surgical site pain at rest. No F/C, lightheadedness, CP, SOB, N/V, abd pain, dysuria, diarrhea. Passing flatus, no post-op bowel movement. Has been refusing bowel regimen. Torres in place but RN to remove today. Review of Systems Review of Systems: At least ten systems reviewed and negative except as noted in the HPI. Physical Exam Physical Exam: Gen: WD/WN, NAD, sitting in bedside chair, A&Ox3, anxious HEENT: Normocephalic, atraumatic, mucous membranes moist Lung: Clear to Auscultation bilaterally, no wheezes/rales/rhonchi Heart: Regular rate, regular rhythm Abdomen: Soft, NT, ND +BS x 4 Extremities: Spinal dressing c/d/i, trace edema, BLE ankle strength intact Skin: Warm, no rash Results & Data Results & Data Vital Signs (Past 12 Hours) Vital Signs Temp Pulse Resp BP Pulse Ox O2 Del Method 08/04/24 07:47 36.7 C 50 L 16 153/81 H 96 Room Air 08/03/24 21:24 36.7 C 56 L 20 130/64 97 Room Air Laboratory Results Short CBC 08/04/24 Range/Units 05:31 WBC 16.39 H (4.8-10.8) K/ul Hgb 10.2 L (12.0-16.0) g/dl Hct 31.9 L (37.0-47.0) % Plt Count 350 (130-400) K/uL BMP 08/04/24 05:31 Sodium 137 Potassium 4.6 Chloride 105 Carbon Dioxide 29 BUN 19 Creatinine 0.76 Glucose 144 H Calcium 9.1 Diagnostic Findings Lumbar Spine X-Ray 07/31/24 00:00 FL lumbar spine 2-3V CLINICAL HISTORY: L4-S1 DECOMP/FUSION COMPARISON STUDY: None FLUOROSCOPY TIME: 25 seconds FLUOROSCOPY IMAGES: 3 EXPOSURE DOSE: 21 mGy FINDINGS: Fluoroscopy was provided for lower lumbar metallic fusion. IMPRESSION: Intraoperative fluoroscopy. ACT 112: Negative or not required by law. Electronically signed by: Guillermo Silva M.D. 07/31/2024 2:57 PM Venous Doppler Study 08/01/24 12:23 LEFT LOWER EXTREMITY VENOUS DOPPLER HISTORY: L calf pain, h/o DVT COMPARISON STUDY: None FINDINGS: No evidence of DVT seen in the left lower extremity. IMPRESSION: No DVT seen. . ACT 112: Negative or not required by law. Electronically signed by: Guillermo Silva M.D. 08/01/2024 1:52 PM (3) Headache Headache chronicity pattern: acute headache Headache type: unspecified Intractability: intractable Qualified Code(s): R51.9 - Headache, unspecified
--- NOTE | 2024-08-04 10:54 | Orthopedic Progress Note ---
Date of Service August 04, 2024 Assessment & Plan (1) Multilevel lumbosacral spondylosis with radiculopathy: Plan: At this point we will initiate physical therapy. Advance her bowel regiment. Consider possible enema tomorrow. Admission and Anticipated Discharge Date Admission Date: July 31, 2024 Subjective Patient tolerated bed to chair yesterday. She ambulated about the room. She is very concerned about lack of bowel movement. She is positive for flatus. Physical Exam Physical Exam: On exam her abdomen is soft. She is neurologically intact. Results & Data Vital Signs (Past 12 Hours) Vital Signs Temp Pulse Resp BP Pulse Ox O2 Del Method 08/04/24 07:47 36.7 C 50 L 16 153/81 H 96 Room Air Queries Orthopedic Spine Obesity: Yes
[2024-08-04] MEDS ORDERED: SOD PHOSPHATE/SOD BIPHOSPHATE ENEMA 132 ML BTL PR PRN (13:06)
[2024-08-04] MEDS: MAGNESIUM HYDROXIDE SUSP 30 ML UDC PO ONE (14:20)
[2024-08-04] MEDS: HEPARIN SOD 5,000 UNIT/0.5 ML VIAL SQ SCH (22:37)
[2024-08-05 04:56] LABS: Hematocrit (blood only) 31.3 % (37.0-47.0); Hemoglobin 10.1 g/dl (12.0-16.0); Mean Corpuscular Hemoglobin 28.6 pg (25.0-34.0); Mean Corpuscular Hgb Conc 32.3 g/dL (32.0-36.0); Mean Corpuscular Volume 88.7 fL (80.0-100.0); Mean Platelet Volume 10.1 fL (9.4-12.4); Platelet Count 399 K/uL (130-400); RDW Standard Deviation 42.4 fL (36.4-46.3); Red Blood Count 3.53 M/uL (4.20-5.40); White Blood Count 14.57 K/ul (4.8-10.8)
[2024-08-05 05:14] LABS: BUN Creatinine Ratio 30.6 (10-20); Calcium 9.1 mg/dl (8.6-10.3); Creatinine Clr Calc Pharmacy 63.9 ml/min; Potassium 4.6 mmol/L (3.5-5.1)
--- NOTE | 2024-08-05 10:42 | Orthopedic Progress Note ---
Date of Service August 05, 2024 Assessment & Plan (1) Multilevel lumbosacral spondylosis with radiculopathy: Plan: At this time we will continue physical therapy advance her bowel regiment anticipate discharge home in the next few days. Admission and Anticipated Discharge Date Admission Date: July 31, 2024 Subjective Back pain is controlled. She is tolerating physical therapy. She walked several 100 feet today. Physical Exam Physical Exam: Patient in the chair at the bedside. Discussed active testing. Results & Data Vital Signs (Past 12 Hours) Vital Signs Temp Pulse Resp BP Pulse Ox O2 Del Method 08/05/24 07:26 36.7 C 50 L 18 144/62 H 96 Room Air Queries Orthopedic Spine Obesity: Yes
--- NOTE | 2024-08-05 11:56 | Hospitalist Progress Note ---
Date of Service August 05, 2024 Assessment & Plan (1) Multilevel lumbosacral spondylosis with radiculopathy: (2) S/P spinal surgery: (3) Headache: (4) Acute postoperative anemia due to expected blood loss: Plan Patient is a 74 year old female with past medical history of spondylosis with radiculopathy, HTN, HLD, chronic venous insufficiency, PAD, PUD, hiatal hernia, history of provoked DVT in 1990 and other problems listed below who is being seen in consultation for routine postoperative medical management after undergoing L4-S1 decompression and fusion performed by Dr. Majano on 07/31/24. #Multilevel lumbosacral spondylosis with radiculopathy #S/p spinal surgery #Postop headache, N/V 2/2 CSF leak ISO incidental durotomy during surgery POD #5 s/p L4-S1 decompression and fusion Post-op headache in setting of incidental durotomy has resolved, tolerating being OOB, ambulated in halls today Advancement of activity per Dr. Majano Continue PRN pain control, wound care per ortho #Constipation No post op bowel movement, passing flatus Pt moves bowels 1-2 a week at baseline Initally refused bowel regimen, now complaint Encourage continued ambulation and hydration Will continue regimen of Senna S and Miralax. Discussed with nursing regarding timing of miralax to ensure it is given during waking hours Abd exam benign and pt passing gas, suspect now that she is ambulating and taking meds she will likely have a BM in a couple days #Acute postoperative blood loss anemia 2/2 expected intraop blood loss Hgb stable at 10.1 Continue to monitor H/H #Leukocytosis suspect in setting of IV steroids - no suspicion for underlying infection Monitor with daily CBC #L calf pain reported on 08/01 -> resolved LLE venous doppler US negative (obtained given remote h/o DVT) #HTN BP 144/62 pre medications, continue to monitor Norvasc and losartan resumed #Carotid artery stenosis #HLD Continue statin, ASA as per ortho DVT Prophylaxis: SQ heparin Q12 Disposition: D/c planning as per ortho We will follow the patient with you during their hospital stay. You can reach a [facility] via [employer]. I spent a total of 40 minutes coordinating, documenting, and providing care for this patient excluding time spent in the performance of separately billed services or time spent by another provider/QHP. Patient seen in collaboration with Dr. Cuevas Admission and Anticipated Discharge Date Admission Date: July 31, 2024 Supervising Physician Co-Signing Physician Notes Attending Addendum: Case reviewed with the advanced practitioner. I have reviewed the advanced practitioner's documentation on the date of service referenced in note, and I agree with, and take responsibility for the plan of care. please refer to her notes for full details patient seen and examined, records reviewed by myself as well diagnoses and plan of care as per advanced practitioner's notes I spent a total of 350 minutes coordinating, documenting, and providing care for this patient, excluding time spent in the performance of separately billed services or time spent by another provider/QHP. Len Cuevas MD Subjective Pt was seen and examined in room 354-2. F/U lumbar surgery and durotomy. She just walked 500ft in the halls. SHe feels still and is sitting in the chair. Denies f/c/s, chest pain, sob, n/v/d. She is very nervous to have a bowel movement here. She is passing gas. She denies bloating or abd pain. She states at home she only goes 1-2x/wk. She has had issues with bowels all her life. When she does go it is loose and typically incontinent. She has not had a cscope in 50 years and wishes to not have one. Review of Systems Review of Systems: All systems reviewed & are unremarkable except as noted in HPI & below Physical Exam Physical Exam: Gen: WD/WN, NAD, A&O x3 HEENT: Normocephalic, atraumatic, conjunctivae moist, sclerae anicteric, mucous membranes moist. Lung: Clear to Auscultation bilaterally, no wheezes/rales/rhonchi Heart: Regular rate, regular rhythm, no murmurs, rubs, or gallops Abdomen: Soft, NT, ND +BS x 4 Extremities: No edema Skin: Warm, no rash, negative turgor. Results & Data Results & Data Vital Signs (Past 12 Hours) Vital Signs Temp Pulse Resp BP Pulse Ox O2 Del Method 08/05/24 07:26 36.7 C 50 L 18 144/62 H 96 Room Air Laboratory Results I have independently reviewed and interpreted patient's cbc, bmp Short CBC 08/05/24 Range/Units 04:06 WBC 14.57 H (4.8-10.8) K/ul Hgb 10.1 L (12.0-16.0) g/dl Hct 31.3 L (37.0-47.0) % Plt Count 399 (130-400) K/uL BMP 08/05/24 04:06 Sodium 138 Potassium 4.6 Chloride 105 Carbon Dioxide 29 BUN 26 H Creatinine 0.85 Glucose 116 H Calcium 9.1 Medications Administered Current Inpatient Medications Acetaminophen (Acetaminophen 500 Mg Tab) 1,000 mg PO Q8H PRN PRN Reason: MILD Pain (1,2,3) & Pre PT Stop: 08/30/24 16:49 Hydrocodone Bitart/Acetaminophen (Hydrocodone/Acetamophen 5/325mg Tab) 1 - 2 tab PO Q4H PRN PRN Reason: MOD/SEV Pain & Pre PT Stop: 08/14/24 16:49 Last Admin: 08/05/24 10:45 Dose: 1 tab Amlodipine Besylate (Amlodipine Besylate 5 Mg Tab) 10 mg PO QAM JERRICA Stop: 09/01/24 11:59 Last Admin: 08/05/24 08:10 Dose: 10 mg Aspirin (Aspirin 81 Mg Ectab) 81 mg PO DAILY [facility] Stop: 08/31/24 08:59 Last Admin: 08/05/24 08:10 Dose: 81 mg Famotidine (Famotidine 20 Mg Tab) 20 mg PO Q12H PRN PRN Reason: Dyspepsia Stop: 08/30/24 16:49 Heparin Sodium (Porcine) (Heparin Sod 5,000 Unit/0.5 Ml Vial) 5,000 units SQ Q12 JERRICA Stop: 09/03/24 20:59 Last Admin: 08/05/24 08:08 Dose: 5,000 units Hydromorphone HCl (Hydromorphone Inj 1 Mg/Ml Syringe) 1 mg IV Q3H PRN PRN Reason: SEVERE Pain (7,8,9,10) Stop: 08/14/24 16:49 Last Admin: 07/31/24 19:52 Dose: 1 mg Hydroxyzine HCl (Hydroxyzine Hcl 25 Mg Tab) 25 mg PO Q8H PRN PRN Reason: Anxiety Stop: 08/30/24 16:49 Dexamethasone 6 mg/ Syringe 1.5 mls @ 0.3 mls/min IV QAM [facility] Stop: 08/31/24 10:29 Last Admin: 08/01/24 11:47 Dose: 0.3 mls/min Influenza Virus Vaccine Quadrival (Do Not Administer Flu Vaccine) 1 each N/A PRN PRN PRN Reason: Notification Stop: 08/30/24 16:49 Losartan Potassium (Losartan Potassium 25 Mg Tab) 25 mg PO QAM [facility] Stop: 09/03/24 08:59 Last Admin: 08/05/24 08:10 Dose: 25 mg Naloxone HCl (Naloxone Hcl 0.4 Mg/1 Ml Vial/Carp) 0.1 mg IV Q5M PRN PRN Reason: Oversedation/Resp depression Stop: 08/30/24 16:49 Ondansetron HCl (Ondansetron Inj 2 Mg/Ml 2 Ml Vial) 4 mg IV Q6H PRN PRN Reason: Nausea &/or Vomiting Stop: 08/30/24 16:49 Last Admin: 07/31/24 19:51 Dose: 4 mg Ondansetron HCl (Ondansetron 4 Mg Od Tab) 4 mg PO Q6H PRN PRN Reason: Nausea Stop: 08/30/24 16:49 Last Admin: 08/01/24 08:41 Dose: 4 mg Pneumococcal Polyvalent Vaccine (Do Not Administer Pneumococcal Vaccine) 1 each N/A PRN PRN PRN Reason: Notification Stop: 08/30/24 16:49 Polyethylene Glycol (Polyethylene (Miralax) 17 Gm Pack) 17 gm PO QID [facility] Stop: 09/04/24 11:59 Pravastatin Sodium (Pravastatin Sod 10 Mg Tab) 10 mg PO QAM [facility] Stop: 08/31/24 08:59 Last Admin: 08/05/24 08:10 Dose: 10 mg Senna/Docusate Sodium (Docusate Sodium/Senna 50/8.6mg Tab) 2 tab PO HS [facility] Stop: 08/30/24 20:59 Last Admin: 08/04/24 22:37 Dose: 2 tab (3) Headache Headache chronicity pattern: acute headache Headache type: unspecified Intractability: intractable Qualified Code(s): R51.9 - Headache, unspecified
[2024-08-05] MEDS: POLYETHYLENE (MIRALAX) 17 GM PACK PO SCH (12:41)
[2024-08-06] MEDS ORDERED: KETOROLAC TROMETHAMINE 15 MG/ML VIAL IV PRN (08:22)
--- NOTE | 2024-08-06 08:23 | Orthopedic Progress Note ---
Date of Service August 06, 2024 Assessment & Plan (1) Multilevel lumbosacral spondylosis with radiculopathy: Plan: At this time we will continue physical therapy today. Anticipate discharge home tomorrow. Admission and Anticipated Discharge Date Admission Date: July 31, 2024 Subjective Patient had a very good day with therapy yesterday. Patient quite sore this morning. Bowels are working. No leg pain. Back pain controlled. Physical Exam Physical Exam: Patient is in the chair at the bedside. Is constricted testing. Results & Data Vital Signs (Past 12 Hours) Vital Signs Temp Pulse Resp BP Pulse Ox O2 Del Method 08/06/24 07:11 36.7 C 56 L 16 124/67 96 Room Air Queries Orthopedic Spine Obesity: Yes
[2024-08-06] MEDS: NYSTATIN SUSP 500,000 U/5 ML UDC PO SCH (09:20)
[2024-08-06] MEDS: KETOROLAC TROMETHAMINE 15 MG/ML VIAL IV ONE (09:28)
--- NOTE | 2024-08-06 14:44 | Hospitalist Progress Note ---
Date of Service August 06, 2024 Assessment & Plan (1) Multilevel lumbosacral spondylosis with radiculopathy: (2) S/P spinal surgery: (3) Headache: (4) Acute postoperative anemia due to expected blood loss: Plan Patient is a 74 year old female with past medical history of spondylosis with radiculopathy, HTN, HLD, chronic venous insufficiency, PAD, PUD, hiatal hernia, history of provoked DVT in 1990 and other problems listed below who is being seen in consultation for routine postoperative medical management after undergoing L4-S1 decompression and fusion performed by Dr. Majano on 07/31/24. #Multilevel lumbosacral spondylosis with radiculopathy #S/p spinal surgery #Postop headache, N/V 2/2 CSF leak ISO incidental durotomy during surgery POD #6 s/p L4-S1 decompression and fusion Post-op headache in setting of incidental durotomy has resolved, tolerating being OOB, ambulated in halls today Advancement of activity per Dr. Majano Continue PRN pain control, wound care per ortho #Constipation Pt had large BM today, continue bowel regimen #Thrush nystatin x 10 days #Acute postoperative blood loss anemia 2/2 expected intraop blood loss Hgb stable at 10.1 Continue to monitor H/H #Leukocytosis suspect in setting of IV steroids - no suspicion for underlying infection Monitor with daily CBC #L calf pain reported on 08/01 -> resolved LLE venous doppler US negative (obtained given remote h/o DVT) #HTN BP 144/62 pre medications, continue to monitor Norvasc and losartan resumed #Carotid artery stenosis #HLD Continue statin, ASA as per ortho DVT Prophylaxis: SQ heparin Q12 Disposition: D/c planning as per ortho We will follow the patient with you during their hospital stay. You can reach a member of the [facility] Hospitalist Team 03/09 via [employer]. I spent a total of 42 minutes coordinating, documenting, and providing care for this patient excluding time spent in the performance of separately billed services or time spent by another provider/QHP. Patient seen in collaboration with Dr. Cuevas Admission and Anticipated Discharge Date Admission Date: July 31, 2024 Supervising Physician Co-Signing Physician Notes Attending Addendum: Case reviewed with the advanced practitioner. I have reviewed the advanced practitioner's documentation on the date of service referenced in note, and I agree with, and take responsibility for the plan of care. please refer to her notes for full details patient seen and examined, records reviewed by myself as well diagnoses and plan of care as per advanced practitioner's notes I spent a total of 20 minutes coordinating, documenting, and providing care for this patient, excluding time spent in the performance of separately billed ser vices or time spent by another provider/QHP. Len Cuevas MD Subjective Pt was seen and examined in room 354-2. She had a large BM this morning. She has significant incisional back pain with radiation down posterior legs. She feels she over did it yesterday. Denies f/c/s, chest pain, sob, n/v/d. Pt reports burning in mouth, Hx of thrust and feels similar. Review of Systems Review of Systems: All systems reviewed & are unremarkable except as noted in HPI & below Physical Exam Physical Exam: Gen: WD/WN, NAD, appears in pain, A&O x3 HEENT: Normocephalic, atraumatic, conjunctivae moist, sclerae anicteric, mucous membranes moist. +Thrush Lung: Clear to Auscultation bilaterally, no wheezes/rales/rhonchi Heart: Regular rate, regular rhythm, no murmurs, rubs, or gallops Abdomen: Soft, NT, ND +BS x 4 Extremities: No edema Skin: Warm, no rash, negative turgor. Results & Data Results & Data Vital Signs (Past 12 Hours) Vital Signs Temp Pulse Pulse Resp BP Pulse Ox O2 Del Method 08/06/24 08:43 67 111/78 08/06/24 07:11 36.7 C 56 L 16 124/67 96 Room Air Medications Administered Current Inpatient Medications Acetaminophen (Acetaminophen 500 Mg Tab) 1,000 mg PO Q8H PRN PRN Reason: MILD Pain (1,2,3) & Pre PT Stop: 08/30/24 16:49 Hydrocodone Bitart/Acetaminophen (Hydrocodone/Acetamophen 5/325mg Tab) 1 - 2 tab PO Q4H PRN PRN Reason: MOD/SEV Pain & Pre PT Stop: 08/14/24 16:49 Last Admin: 08/06/24 06:43 Dose: 1 tab Amlodipine Besylate (Amlodipine Besylate 5 Mg Tab) 10 mg PO QAM JERRICA Stop: 09/01/24 11:59 Last Admin: 08/06/24 08:45 Dose: 10 mg Aspirin (Aspirin 81 Mg Ectab) 81 mg PO DAILY [facility] Stop: 08/31/24 08:59 Last Admin: 08/06/24 08:45 Dose: 81 mg Famotidine (Famotidine 20 Mg Tab) 20 mg PO Q12H PRN PRN Reason: Dyspepsia Stop: 08/30/24 16:49 Heparin Sodium (Porcine) (Heparin Sod 5,000 Unit/0.5 Ml Vial) 5,000 units SQ Q12 [facility] Stop: 09/03/24 20:59 Last Admin: 08/06/24 08:46 Dose: 5,000 units Hydromorphone HCl (Hydromorphone Inj 1 Mg/Ml Syringe) 1 mg IV Q3H PRN PRN Reason: SEVERE Pain (7,8,9,10) Stop: 08/14/24 16:49 Last Admin: 07/31/24 19:52 Dose: 1 mg Hydroxyzine HCl (Hydroxyzine Hcl 25 Mg Tab) 25 mg PO Q8H PRN PRN Reason: Anxiety Stop: 08/30/24 16:49 Dexamethasone 6 mg/ Syringe 1.5 mls @ 0.3 mls/min IV [facility] Stop: 08/31/24 10:29 Last Admin: 08/01/24 11:47 Dose: 0.3 mls/min Influenza Virus Vaccine Quadrival (Do Not Administer Flu Vaccine) 1 each N/A PRN PRN PRN Reason: Notification Stop: 08/30/24 16:49 Ketorolac Tromethamine (Ketorolac Tromethamine 15 Mg/Ml Vial) 15 mg IV Q6H PRN PRN Reason: Pain Stop: 08/11/24 08:21 Losartan Potassium (Losartan Potassium 25 Mg Tab) 25 mg PO QAM [facility] Stop: 09/03/24 08:59 Last Admin: 08/06/24 08:46 Dose: 25 mg Naloxone HCl (Naloxone Hcl 0.4 Mg/1 Ml Vial/Carp) 0.1 mg IV Q5M PRN PRN Reason: Oversedation/Resp depression Stop: 08/30/24 16:49 Nystatin (Nystatin Susp 500,000 U/5 Ml Udc) 5 ml PO QID JERRICA Stop: 08/16/24 08:59 Last Admin: 08/06/24 13:07 Dose: 5 ml Ondansetron HCl (Ondansetron Inj 2 Mg/Ml 2 Ml Vial) 4 mg IV Q6H PRN PRN Reason: Nausea &/or Vomiting Stop: 08/30/24 16:49 Last Admin: 07/31/24 19:51 Dose: 4 mg Ondansetron HCl (Ondansetron 4 Mg Od Tab) 4 mg PO Q6H PRN PRN Reason: Nausea Stop: 08/30/24 16:49 Last Admin: 08/01/24 08:41 Dose: 4 mg Pneumococcal Polyvalent Vaccine (Do Not Administer Pneumococcal Vaccine) 1 each N/A PRN PRN PRN Reason: Notification Stop: 08/30/24 16:49 Polyethylene Glycol (Polyethylene (Miralax) 17 Gm Pack) 17 gm PO QID@0900,1300,1700,2000 [facility] Stop: 09/04/24 11:59 Last Admin: 08/06/24 13:07 Dose: Not Given Pravastatin Sodium (Pravastatin Sod 10 Mg Tab) 10 mg PO QAM JERRICA Stop: 08/31/24 08:59 Last Admin: 08/06/24 08:46 Dose: 10 mg Senna/Docusate Sodium (Docusate Sodium/Senna 50/8.6mg Tab) 2 tab PO HS [facility] Stop: 08/30/24 20:59 Last Admin: 08/05/24 20:52 Dose: 2 tab (3) Headache Headache chronicity pattern: acute headache Headache type: unspecified Intractability: intractable Qualified Code(s): R51.9 - Headache, unspecified
[2024-08-07 07:32] VITALS: BP 131/72; PULSE 68; RESP 18; O2SAT 96
[2024-08-07 08:08] VITALS: TEMP 97.9
[2024-08-07 08:28] LABS: Basophils # (auto) 0.06 K/uL (0.00-0.20); Basophils % (auto) 0.4 %; Eosinophils # (auto) 0.64 K/uL (0.00-0.50); Eosinophils % (auto) 4.8 %; Hematocrit (blood only) 34.2 % (37.0-47.0); Hemoglobin 10.5 g/dl (12.0-16.0); Immature Granulocytes # (auto) 0.53 K/uL (0.01-0.20); Immature Granulocytes % (auto) 3.9 %; Lymphocytes # (auto) 2.78 K/uL (1.20-3.40); Lymphocytes % (auto) 20.7 %; Mean Corpuscular Hemoglobin 27.9 pg (25.0-34.0); Mean Corpuscular Hgb Conc 30.7 g/dL (32.0-36.0); Mean Corpuscular Volume 90.7 fL (80.0-100.0); Mean Platelet Volume 9.6 fL (9.4-12.4); Monocytes # (auto) 0.99 K/uL (0.11-0.59); Monocytes % (auto) 7.4 %; Neutrophils # (auto) 8.44 K/uL (1.40-6.50); Neutrophils % (auto) 62.8 %; Platelet Count 377 K/uL (130-400); RDW Coefficient of Variation 13.2 % (11.5-14.5); RDW Standard Deviation 43.3 fL (36.4-46.3); Red Blood Count 3.77 M/uL (4.20-5.40); White Blood Count 13.44 K/ul (4.8-10.8)
[2024-08-07 08:44] LABS: BUN Creatinine Ratio 38.3 (10-20); Calcium 8.5 mg/dl (8.6-10.3); Potassium 4.1 mmol/L (3.5-5.1)
--- NOTE | 2024-08-07 11:10 | Hospitalist Progress Note ---
Date of Service August 07, 2024 Assessment & Plan (1) Multilevel lumbosacral spondylosis with radiculopathy: (2) S/P spinal surgery: (3) Headache: (4) Acute postoperative anemia due to expected blood loss: Plan Patient is a 74 year old female with past medical history of spondylosis with radiculopathy, HTN, HLD, chronic venous insufficiency, PAD, PUD, hiatal hernia, history of provoked DVT in 1990 and other problems listed below who is being seen in consultation for routine postoperative medical management after undergoing L4-S1 decompression and fusion performed by Dr. Majano on 07/31/24. #Multilevel lumbosacral spondylosis with radiculopathy #S/p spinal surgery #Postop headache, N/V 2/2 CSF leak ISO incidental durotomy during surgery POD #7 s/p L4-S1 decompression and fusion Post-op headache in setting of incidental durotomy has resolved, tolerating being OOB, ambulating Advancement of activity per Dr. Majano Continue PRN pain control, wound care per ortho Pt is medically stable for discharge home #Constipation bowels moving, ok to reduce miralax #Thrush nystatin x 10 days #Acute postoperative blood loss anemia 2/2 expected intraop blood loss Hgb stable at 10.5 #Leukocytosis suspect in setting of IV steroids - no suspicion for underlying infection Monitor with daily CBC #L calf pain reported on 08/01 -> resolved LLE venous doppler US negative (obtained given remote h/o DVT) #HTN BP 144/62 pre medications, continue to monitor Norvasc and losartan resumed #Carotid artery stenosis #HLD Continue statin, ASA as per ortho DVT Prophylaxis: SQ heparin Q12 Disposition: Discharge to home today if okay with Dr. Majano We will follow the patient with you during their hospital stay. You [facility] via [employer]. I spent a total of 44 minutes coordinating, documenting, and providing care for this patient excluding time spent in the performance of separately billed services or time spent by another provider/QHP. Patient seen in collaboration with Dr. Cuevas Admission and Anticipated Discharge Date Admission Date: July 31, 2024 Supervising Physician Co-Signing Physician Notes Attending Addendum: Case reviewed with the advanced practitioner. I have reviewed the advanced practitioner's documentation on the date of service referenced in note, and I agree with, and take responsibility for the plan of care. please refer to her notes for full details diagnoses and plan of care as per advanced practitioner's notes I spent a total of 15 minutes coordinating, documenting, and providing care for this patient, excluding time spent in the performance of separately billed services or time spent by another provider/QHP. Len Cuevas MD Subjective Pt was seen and examined in room 354-2. OT is at bedside. Pt reports 4-5BMs. Denies f/c/s, chest pain, sob, n/v. She is still having a lot of back discomfort but is participating in therapy. She is not taking any more miralax. She is frequently tearful through exam. She reports being depressed. She declines counseling or discussing with primary care provider regarding anti depressants. Review of Systems Review of Systems: All systems reviewed & are unremarkable except as noted in HPI & below Physical Exam Physical Exam: Gen: WD/WN, NAD, sitting at edge of bed and transfers to chair, A&O x3, occasionally tearful HEENT: Normocephalic, atraumatic, conjunctivae moist, sclerae anicteric, mucous membranes moist. +Thrush Lung: Clear to Auscultation bilaterally, no wheezes/rales/rhonchi Heart: Regular rate, regular rhythm, no murmurs, rubs, or gallops Abdomen: Soft, NT, ND +BS x 4 Extremities: No edema, dressing CDI Skin: Warm, no rash, negative turgor. Results & Data Results & Data Vital Signs (Past 12 Hours) Vital Signs Temp Pulse Pulse Resp BP Pulse Ox O2 Del Method 08/07/24 08:08 36.6 C 08/07/24 07:32 68 18 131/72 96 Room Air 08/07/24 05:53 71 22 151/78 H 97 Room Air Laboratory Results I have independently reviewed and interpreted patient's cbc, bmp Medications Administered Current Inpatient Medications Acetaminophen (Acetaminophen 500 Mg Tab) 1,000 mg PO Q8H PRN PRN Reason: MILD Pain (1,2,3) & Pre PT Stop: 08/30/24 16:49 Hydrocodone Bitart/Acetaminophen (Hydrocodone/Acetamophen 5/325mg Tab) 1 - 2 tab PO Q4H PRN PRN Reason: MOD/SEV Pain & Pre PT Stop: 08/14/24 16:49 Last Admin: 08/07/24 08:47 Dose: 2 tab Amlodipine Besylate (Amlodipine Besylate 5 Mg Tab) [facility] Stop: 09/01/24 11:59 Last Admin: 08/07/24 08:35 Dose: 10 mg Aspirin (Aspirin 81 Mg Ectab) 81 mg PO DAILY [facility] Stop: 08/31/24 08:59 Last Admin: 08/07/24 08:36 Dose: 81 mg Famotidine (Famotidine 20 Mg Tab) 20 mg PO Q12H PRN PRN Reason: Dyspepsia Stop: 08/30/24 16:49 Heparin Sodium (Porcine) (Heparin Sod 5,000 Unit/0.5 Ml Vial) 5,000 units SQ Q12 [facility] Stop: 09/03/24 20:59 Last Admin: 08/07/24 08:39 Dose: 5,000 units Hydromorphone HCl (Hydromorphone Inj 1 Mg/Ml Syringe) 1 mg IV Q3H PRN PRN Reason: SEVERE Pain (7,8,9,10) Stop: 08/14/24 16:49 Last Admin: 08/07/24 05:43 Dose: 1 mg Hydroxyzine HCl (Hydroxyzine Hcl 25 Mg Tab) 25 mg PO Q8H PRN PRN Reason: Anxiety Stop: 08/30/24 16:49 Dexamethasone 6 mg/ Syringe 1.5 mls @ 0.3 mls/min IV [facility] Stop: 08/31/24 10:29 Last Admin: 08/01/24 11:47 Dose: 0.3 mls/min Influenza Virus Vaccine Quadrival (Do Not Administer Flu Vaccine) 1 each N/A PRN PRN PRN Reason: Notification Stop: 08/30/24 16:49 Ketorolac Tromethamine (Ketorolac Tromethamine 15 Mg/Ml Vial) 15 mg IV Q6H PRN PRN Reason: Pain Stop: 08/11/24 08:21 Losartan Potassium (Losartan Potassium 25 Mg Tab) [facility] [place] Stop: 09/03/24 08:59 Last Admin: 08/07/24 08:36 Dose: 25 mg Naloxone HCl (Naloxone Hcl 0.4 Mg/1 Ml Vial/Carp) 0.1 mg IV Q5M PRN PRN Reason: Oversedation/Resp depression Stop: 08/30/24 16:49 Nystatin (Nystatin Susp 500,000 U/5 Ml Udc) 5 ml PO QID [facility] Stop: 08/16/24 08:59 Last Admin: 08/07/24 08:36 Dose: 5 ml Ondansetron HCl (Ondansetron Inj 2 Mg/Ml 2 Ml Vial) 4 mg IV Q6H PRN PRN Reason: Nausea &/or Vomiting Stop: 08/30/24 16:49 Last Admin: 07/31/24 19:51 Dose: 4 mg Ondansetron HCl (Ondansetron 4 Mg Od Tab) 4 mg PO Q6H PRN PRN Reason: Nausea Stop: 08/30/24 16:49 Last Admin: 08/01/24 08:41 Dose: 4 mg Pneumococcal Polyvalent Vaccine (Do Not Administer Pneumococcal Vaccine) 1 each N/A PRN PRN PRN Reason: Notification Stop: 08/30/24 16:49 Polyethylene Glycol (Polyethylene (Miralax) 17 Gm Pack) 17 gm PO QID@0900,1300,1700,2000 [facility] Stop: 09/04/24 11:59 Last Admin: 08/07/24 08:36 Dose: Not Given Pravastatin Sodium (Pravastatin Sod 10 Mg Tab) 10 mg PO QAM [facility] Stop: 08/31/24 08:59 Last Admin: 08/07/24 08:35 Dose: 10 mg Senna/Docusate Sodium (Docusate Sodium/Senna 50/8.6mg Tab) 2 tab PO HS [facility] Stop: 08/30/24 20:59 Last Admin: 08/06/24 20:45 Dose: Not Given (3) Headache Headache chronicity pattern: acute headache Headache type: unspecified Intractability: intractable Qualified Code(s): R51.9 - Headache, unspecified
--- NOTE | 2024-08-07 11:19 | Discharge Summary ---
Date of Service August 07, 2024 Admission HPI Per Admitting Provider This is a 74-year-old female who presents with persistent back and leg pain and failing course of nonoperative care she is here for surgical invention. Principal Diagnosis Lumbar spondylosis with radiculopathy Discharge Data Allergies Allergy/AdvReac Type Severity Reaction Status Date / Time adhesive tape Allergy Severe Blister Verified 07/31/24 10:53 ciprofloxacin [From Cipro] Allergy Severe Difficulty Verified 07/31/24 10:53 Breathing nickel Allergy Severe Blister Verified 07/31/24 10:53 cephalexin [From Keflex] Allergy Mild Unknown Verified 07/31/24 10:53 codeine Allergy Mild Nausea Verified 07/31/24 10:53 Opioids - Morphine Analogues AdvReac Mild Gastrointestinal Verified 07/31/24 10:53 Upset Consultations 07/31/24 16:50 Consult Hospitalist Routine Procedures Performed Operation Date: 07/31/24 11:55 Actual Procedures p L4-S1 Decompression and Fusion(Not Applicable) - Isaias Majano DO Ordered Studies 07/31/24 [place] lumbar spine 2-3V Routine 08/01/24 12:23 US venous doppler LE Urgent Hospital Course (1) Multilevel lumbosacral spondylosis with radiculopathy: Patient underwent multilevel lateral decompression fusion tolerated this well was taken orthopedic for postoperative. Postoperatively she required an extra day of bedrest secondary to a repaired durotomy. She tolerated this well. And was up with therapy. She progressed throughout the week bowels working well. Excellent strength testing. Pain controlled. Subsidy discharged home. Discharge orders and instructions from the chart for further view. Total Time Total Time Spent Total Time Spent (In Minutes): 20 minutes Discharge Plan Discharge Items Patient Disposition: Home - Self-Care Reason For Visit: Lumbar Disc Disease with Radiculopathy, Degenerati Discharge Diagnosis: Lumbar spondylosis with radiculopathy Activity: As commented below Non-emergency contact: Primary Care Provider Call non-emergency contact if: you have any medication questions Follow-up/Referrals: Joe Spring MD [Primary Care Provider] - 08/12/24 10:30 am Diet: Regular Addtl Attending Provider Instructions: ACTIVITY RECOMMENDATIONS: SELF CARE INSTRUCTIONS AFTER THORACIC/LUMBAR FUSIONS 1. You may walk to your tolerance. It is good exercise for your legs and back. Expect some back and intermittent leg aches and pains. 2. You may perform "counter-top" level activities (make a sandwich, angel with a project, etc.). 3. No bending or lifting of more than 10 pounds or back twisting of any nature (roll like a log when turning in bed). 4. You may ride in a car for 20-30 minutes at a time. No driving until after your first visit with your doctor. 5. Frequent changes of position and restricting sitting to 30 minutes at a time will help limit the amount of back spasms and stiffness you may experience. 6. You may discontinue the use of ambulatory aids (cane, crutches, etc.) once your strength and confidence allow. 7. You may machining associate the shower and let water strike your incision when you arrive home at least once daily. Do not take a tub bath, sit in a hot tub or go into a swimming pool until after your first recheck in the office. 8. You may resume previous diet. SPECIAL CARE INSTRUCTIONS: VERY IMPORTANT TO READ AND REVIEW A. Your surgical incision has been closed with a cosmetic suture under the skin that will dissolve in about 6 weeks. In 14 days, you can use a pair of clean scissors and cut the suture that is left outside of the skin at the ends of your incision. 1. The small skin tapes can be removed 7 days after surgery if they have not fallen off by that point. 2. You may keep the wound open to air as much as possible to promote healing after post-op day number 5 unless told otherwise by your doctor. 3. If you think the wound looks like it is becoming infected (redness or worsening drainage) and/or you are experiencing fever, chill or worsening back pain and muscle spasms, contact the office so that we may evaluate you as soon as possible. B. Complications are uncommon, but please contact us if you have any signs or symptoms of: 1. wound infection (fever higher than 102.5 degrees F, redness, separation of wound, drainage, or increasing pain from the incision) 2. blood clots in legs (pain, swelling, redness and warmth in legs) 3. urinary tract infection (fever higher than 102.5 degrees F, burning upon urination or increased frequency of urination) 4. nerve problems (inability to walk on your toes or heels, numbness, loss of bowel or bladder control) 5. any other symptoms that concern you C. Please call the office at if you have any concerns or questions about your operation or recovery. D. No smoking! Smoking drastically decreases the chance of a solid fusion. E. Do not take any anti-inflammatory medications (Indocin, Advil, Motrin, Aspirin, Naprosyn, etc.) as these may inhibit the chance of a solid fusion. Tylenol is okay to take for pain. MANAGING PAIN AFTER SPINAL SURGERY 1. Narcotic medication is intended for short-term use and will be provided for surgical pain. Surgical pain usually lasts for a period of 4-6 weeks. Narcotic medication includes Percocet, Vicodin, Darvocet, Tylenol #3 or Lortab. 2. Longer-term pain is more appropriately treated with non-narcotic medication such as Tylenol ES. 3. Muscle spasm is not appropriately treated with narcotics. Muscle relaxers such as Soma, Flexeril or Skelaxin can be used along with Tylenol ES. 4. Remember that we all live with some "aches and pains". This is not unusual or uncommon after an injury or as we get older. a. Back pain is expected and may include muscle spasms for 4 to 6 weeks after surgery. The pain should gradually improve. If the pain worsens for no apparent reason, please contact the office. b. Intermittent leg pain may also be experienced and should not be concerned about unless it worsens for no apparent reason. If so, please contact the office. 5. We will provide appropriate medication within the normal guidelines of their prescribed use. We will also be very cautious and aware of potential abuse and extended duration of patients' medication needs. a. Pain medications are for your comfort and to assist with sleep and rest so that the tissue can heal. They are not provided in order to return to normal activity and should not be used through the day. To do so or worsening pain at night can result from ongoing tissue damage and deve lopment of tolerance to the prescribed medicine. 6. Please allow 2-3 days to process refills. Prescriptions will not be mailed but must be picked up at the office. FOLLOW UP VISIT: Keep your scheduled follow-up appointment. Any questions, please call the office at . Pending Studies at Discharge: No Stand-Alone Forms: My [facility], Smoking Cessation Medications and DC Order Prescriptions: New tramadol 50 mg tablet 50 mg PO Q6H PRN (Reason: pain, moderate) Qty: 30 0RF oxycodone 5 mg tablet 5 mg PO Q6H PRN (Reason: pain) Qty: 30 0RF nystatin 100,000 unit/mL Suspension 5 ml PO QID 9 Days Qty: 180 0RF cyclobenzaprine 10 mg Tablet 10 mg PO Q8 PRN (Reason: muscle spasm) Qty: 20 0RF Continued pravastatin 10 mg tablet 10 mg PO QAM Qty: 90 3RF losartan 25 mg tablet 25 mg PO QAM aspirin 81 mg Tablet,Delayed Release (Dr/Ec) 81 mg PO DAILY amlodipine 10 mg tablet 10 mg PO QAM Discharge Orders: Discharge Order (Routine); Ordered 08/07/24 Ordered By: Isaias Majano Admission Data Admit Date/Time: 07/31/24 14:59 Attending Provider: Isaias Majano Admit Provider: Isaias Majano Primary Care Provider: Jeo Spring Other Providers: Mahi Wilson; Len Cuevas
[2024-08-07] MEDS: CYCLOBENZAPRINE HCL 10 MG TAB PO STA (12:49)
== END 2024-08-07 14:33 | disposition home or self-care (01) | DRG 427 ==
LOC: ASU 10:21 → 3W 14:59
DX: K59.00 Constipation, unspecified; M79.605 Pain in left leg; D62 Acute posthemorrhagic anemia; I10 Essential (primary) hypertension; B37.0 Candidal stomatitis; Y92.234 Operating room of hospital as the place of occurrence of the external cause; I73.9 Peripheral vascular disease, unspecified; G96.09 Other spinal cerebrospinal fluid leak; G97.41 Accidental puncture or laceration of dura during a procedure; M47.27 Other spondylosis with radiculopathy, lumbosacral region; D72.829 Elevated white blood cell count, unspecified; Y83.8 Other surgical procedures as the cause of abnormal reaction of the patient, or of later complication, without mention of misadventure at the time of the procedure; Z87.891 Personal history of nicotine dependence; T38.0X5A Adverse effect of glucocorticoids and synthetic analogues, initial encounter; E78.00 Pure hypercholesterolemia, unspecified; Z88.5 Allergy status to narcotic agent; Y92.230 Patient room in hospital as the place of occurrence of the external cause; Z88.1 Allergy status to other antibiotic agents; M48.061 Spinal stenosis, lumbar region without neurogenic claudication; Z86.718 Personal history of other venous thrombosis and embolism